=== PATIENT | female | born 1995 | race Caucasian/White ===

== ENCOUNTER 2016-08-06 15:52 | Emergency (ER) | payer OTHER ==
[~2016-08-06] VITALS: Ht 160 cm; Wt 78.6 kg
[~2016-08-06 15:52] MED LIST: LEFL10TA PO; OXYC-474 PO; ZOF8 PO
[2016-08-06 15:56] VITALS: BP 137/91; PULSE 77; RESP 16; O2SAT 99
[2016-08-06] MEDS ORDERED: IBUP-1827 PO (15:59)
[2016-08-06] MEDS ORDERED: HYDROcodone-APAP 5-325 mg Tablet PO ONE ×2 (16:55→19:45)
[2016-08-06 17:08] LABS: APPEARANCE,URINE CLEAR (CLEAR,HAZY); COLOR,URINE YELLOW (YELLOW)
[2016-08-06 17:09] LABS: OCCULT BLOOD,URINE NEGATIVE (NEGATIVE); UROBILINOGEN,URINE NORMAL (NORMAL)
[2016-08-06 17:37] LABS: BASOPHILS % (AUTO) 0.3 % (0-3); EOSINOPHILS % (AUTO) 7.2 % (0-5); MONOCYTES % (AUTO) 5.6 % (4-12); Mean Corpuscular Hemoglobin 29.4 pg (27.0-35.0); Mean Corpuscular Volume 88.5 fL (81-100); NEUTROPHILS % (AUTO) 58.3 % (40-74); Platelet Count 249 bil/L (150-400)
--- NOTE | 2016-08-06 18:08 | ED.REPORT ---
HPI-Abd Pain F Under 40 Date of Service Aug 06, 2016 ED Provider: Brian Louise PAC History of Present Illness: 20yo female with hx. of endometriosos by laproscopy at [facility] in June,, c/o several days of ongoing abdominal cramping. 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 No fever, n/v/d. Good PO intake. Denies dysuria or hematuria. LMP 1 week ago. . Nursing Notes Stated Complaint: BELLY PAIN Chief Complaint: Female Abdominal Pain Nursing Notes Reviewed: Yes Allergies: Coded Allergies: No Known Allergies (Unverified , 08/06/16) Scheduled PRN Hydrocodone-Acetaminophen 5-325 mg (Hydrocodone-Acetaminophen 5-325 mg) 1 Each Tablet 1 TABLET PO QID PRN PRN For Pain Ibuprofen (Ibuprofen) 600 Mg Tablet 600 MG PO QID PRN PRN For Pain Ondansetron (Zofran) 8 Mg Tablet 8 MG PO Q4H PRN PRN For Nausea General Time Seen by MD: 16:32 Chief Complaint Abdominal pain Hx Obtained From: Patient Arrived By: Walk-in Onset Occurred: 3 days ago Symptom Duration: Waxes and wanes Progression since Onset: Waxes and wanes Location: : Abdomen lower Quality: Same as prior, Cramping, Sharp Radiation: : Does not radiate Severity: Current: Moderate Severity: Maximum: Severe Associated with: Denies: Chills, Constipation, Diarrhea, Dysuria, Fever, Hematemesis, Hematochezia, Hematuria, Shortness of breath Pertinent Negative: Pt denies other symptoms Recent Healthcare: Recent doctor visit Similar Sx Previous: Yes Risk Factors Ectopic Risk Stratification Risk factors reviewed CAD Risk Stratification Risk factors reviewed TAD Risk Stratification Risk factors reviewed Past Medical History Past Medical History GERD RA Fibromyalgia Ovarian cyst bilat Past Surgical History Reports: Cholecystectomy Smoking History Current Every Day Smoker Social History Uses edible cannabis daily Alcohol Use: Denies alcohol use Drug Use: THC Ambulatory Status Independent Review of Systems Constitutional: Denies: Chills, Fever Respiratory: Denies: Shortness of breath Cardiovascular: Denies: Chest pain GI: Reports: Abdominal pain, Denies: Vomiting Female: Denies: Dysuria, Pelvic pain, , Vaginal bleeding - abnl, Vaginal discharge Complete sys rev & neg: except as marked. Physical Exam Initial Vital Signs Vital Signs (First) Date Time Temp Pulse Resp B/P Pulse Ox O2 Delivery O2 Flow Rate FiO2 08/06/16 15:56 36.6 77 16 137/91 99 Room Air Initial VS: Reviewed General/Constitutional: Awake, Alert, No acute distress, Well hydrated, Not toxic appearing Respiratory / Chest: Atraumatic, Breath sounds NL, Breath sounds = bilat, No respiratory distress Cardiovascular: Heart rate NL, Regular rhythm, Heart sounds NL Abdomen: Soft, No guarding, No rebound, BS normoactive, No distention Tenderness/Guarding/Rebound: Positive: Tender diffuse Interpretation & Diagnostics Lab Results Interpretation Result Diagram: 08/06/16 1730 08/06/16 1730 Test 08/06/16 16:31 08/06/16 16:57 08/06/16 17:30 Hold Urine Received (Received) Urine Color Yellow (YELLOW) Urine Appearance Clear (CLEAR,HAZY) Urine pH 5.0 (5.0-8.0) Urine Specific [place] 1.030 (1.003-1.035) Urine Protein Negativemg/dL (NEG,TRACE) Urine Glucose (UA) Negativemg/dL (NEGATIVE) Urine Ketones Negativemg/dL (NEGATIVE) Urine Occult Blood Negative (NEGATIVE) Urine Nitrite Negative (NEGATIVE) Urine Bilirubin Negative (NEGATIVE) Urine Urobilinogen Normalmg/dL (NORMAL) Urine Leukocyte Esterase Negative (NEGATIVE) Urine RBC 0-2/hpf (0-2) Urine WBC 0-5/hpf (0-5) Urine Epithelial Cells Moderate/hpf (NONE-MOD) Urine Crystals None seen (NONE SEEN) Urine Bacteria Many/hpf (NONE-FEW) Urine Hyaline Casts None/lpf (NONE) Urine Granular Casts None seen (NONE SEEN) Urine Waxy Casts None seen (NONE SEEN) Urine Red Blood Cell Casts None seen (NONE SEEN) Urine White Blood Cell Casts None seen (NONE SEEN) Urine Mucus None seen (None Seen) Urine Trichomonas None seen (NONE SEEN) Urine Yeast None (NONE SEEN) Urinalysis Comment None Urine Culture Reflexed Indicated White Blood Count 6.6th/mm3 (3.8-10.1) Red Blood Count 4.36mil/mm3 (3.90-5.20) Hemoglobin 12.8g/dL (12.0-15.6) Hematocrit 38.6% (35.0-46.0) Mean Corpuscular Volume 88.5fL (81-100) Mean Corpuscular Hemoglobin 29.4pg (27.0-35.0) Mean Corpuscular Hemoglobin Concent 33.2% (32.0-37.0) Red Cell Distribution Width 13.2% (12.3-15.4) Platelet Count 249bil/L (150-400) Neutrophils (%) (Auto) 58.3% (40-74) Lymphocytes (%) (Auto) 28.3% (14-46) Monocytes (%) (Auto) 5.6% (4-12) Eosinophils (%) (Auto) 7.2% (0-5) Basophils (%) (Auto) 0.3% (0-3) Sodium Level 140mEq/L (134-144) Potassium Level 3.9mEq/L (3.5-5.2) Chloride Level 103mEq/L (97-108) Carbon Dioxide Level 24mmol/L (18-29) Blood Urea Nitrogen 12mg/dL (6-20) Creatinine 0.61mg/dL (0.57-1.00) Estimat Glomerular Filtration Rate 179mL/min (>59) Glucose Level 90mg/dL (60-99) Calcium Level 9.5mg/dL (8.5-10.1) Total Bilirubin 0.3mg/dL (0.0-1.2) Aspartate Amino Transf (AST/SGOT) 16U/L (0-50) Alanine Aminotransferase (ALT/SGPT) 12U/L (0-32) Alkaline Phosphatase 63U/L (25-150) Total Protein 7.0g/dL (6.4-8.4) Albumin 4.2g/dL (3.4-5.0) Lipase 18U/L (13-60) Hold [place] Top Tube Received (Received) Re-Eval/Medical Decision Med Decision/Clinical Course Med Decision/Clinical Course: Pt. evaluated by Dr. Rodgers who concurs there is no compelling clinical indication for imaging at present. Pt. should do well with home symptomatic treatment pending follow up with PCP and [facility]. Discussed s/s for which to return to ED, and discussed perils of relying on opioid relief of pain that may end up being chronic. Counseled Regarding: Diagnosis, Lab results, Need for follow-up, When/why to return to ED Discharge & Departure Primary Impression: Abdominal pain Abdominal location: generalized Qualified Code: R10.84 - Generalized abdominal pain Additional Impression: Endometriosis determined by laparoscopy Disposition: Home Patient Instructions: Acute Abdominal Pain (ED) Additional Instructions: Rest, bland diet, take hydrocodone sparingly as needed for acute pain. Follow up with PCP for continued care. Return to ER if anything worsens. Referrals: Brook Sanders DO (PCP) 2-3 days follow up. EDSupervising Provider for APC: Kunal Rodgers MD Attending Statment I discussed this case in detail with Mr. Louise. I interviewed and examined the patient in detail myself. He abdomen in soft and mildly diffusely tender without guarding. There are no peritoneal signs. Her labs and urine are normal and I don't see any evidence of an acute abdominal process. I am in agreement with Mr. Louise's assessment and plan. copies to: Brook Sanders Christopher R [facility] Aug 06, 2016 18:08 Kunal Rodgers MD Aug 07, 2016 00:17
[2016-08-06 18:51] VITALS: BP 108/77; PULSE 75; RESP 17; O2SAT 98
[2016-08-06] MEDS ORDERED: HYDR-4003 PO (19:33)
[2016-08-06 19:42] VITALS: BP 129/61; PULSE 72; RESP 17; O2SAT 98
== END 2016-08-06 19:47 | disposition home or self-care (01) ==
LOC: SED 15:52
DX: R10.84 Generalized abdominal pain (principal); N80.9 Endometriosis, unspecified; K21.9 Gastro-esophageal reflux disease without esophagitis; M79.7 Fibromyalgia; F17.210 Nicotine dependence, cigarettes, uncomplicated; F12.10 Cannabis abuse, uncomplicated; Z90.49 Acquired absence of other specified parts of digestive tract